=== PATIENT | female | born 2005 | race Caucasian/White ===

== ENCOUNTER 2024-10-19 15:47 | Emergency (ER) | payer SELFPAY ==
[2024-10-19] MEDS ORDERED: Bicillin LA 1.2 MILLION UNITS/2 ML SYRINGE ONE (18:47)
== END 2024-10-19 19:08 | disposition home or self-care (01) ==
LOC: ERS 15:47
DX: J02.0 Streptococcal pharyngitis (principal); F17.290 Nicotine dependence, other tobacco product, uncomplicated; Z55.6 Problems related to health literacy
CPT/HCPCS: 71045; 87428; 87430; 96372; J0561; Q0162